=== PATIENT | male | born 1945 | race Caucasian/White ===

== ENCOUNTER → 2022-04-14 | Outpatient (CLI) | payer MEDICARE ==
--- NOTE | 2022-04-14 13:17 | Diagnostic Imaging Report ---
INDICATION: Pain and swelling to the left foot. TIME OF EXAM: 12:09 p.m. TECHNIQUE: Three views of the left foot were obtained. FINDINGS: There is generalized demineralization of the left foot. Metatarsals and phalanges appear intact. There are degenerative changes involving multiple tarsometatarsal joints. Midfoot and hindfoot are otherwise unremarkable. No fractures are seen. There appears to be some soft tissue swelling along the dorsum of the foot. 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 No acute bony abnormality is detected. Dictated by: Dictated on workstation # [id number]
--- NOTE | 2022-04-14 13:28 | Diagnostic Imaging Report ---
Indication: Right foot pain and swelling. Time of Exam: 12:07 PM Three views of the right foot were obtained. Midfoot degenerative change is noted with degenerative changes involving multiple tarsometatarsal joints. The metatarsals and phalanges are intact. Hindfoot is unremarkable. There is significant soft tissue swelling along the dorsum of the right foot. No fractures are seen. IMPRESSION: Dorsal soft tissue swelling and midfoot degenerative change. No acute bony abnormality is detected. Dictated by: Dictated on workstation # [id number]
== END ==
LOC: RAD FS 11:49
PROVIDERS: ATTEND Nurse Practitioner Family
DX: M19.072 Primary osteoarthritis, left ankle and foot (principal); M19.071 Primary osteoarthritis, right ankle and foot
CPT/HCPCS: 73630

== ENCOUNTER → 2022-08-23 | Outpatient (CLI) | payer OTHER, MEDICARE ==
[2022-08-23 08:01] LABS: BASOPHILS # (AUTO) 0.1 10^3/uL (0.0-0.1); BASOPHILS % (AUTO) 1 % (0-10); HEMOGLOBIN 11.2 g/dL (13.3-17.7); MEAN CORPUSCULAR HEMOGLOBIN 22 pg (25-34)
[2022-08-23 08:03] LABS: EOSINOPHILS # (AUTO) 0.1 10^3/uL (0.0-0.3); EOSINOPHILS % (AUTO) 1 % (0-10); HEMATOCRIT 39 % (40-54); LYMPHOCYTES # (AUTO) 1.6 10^3/uL (1.0-4.0); LYMPHOCYTES % (AUTO) 26 % (12-44); MEAN CORPUSCULAR HGB CONC 29 g/dL (32-36); MEAN CORPUSCULAR VOLUME 78 fL (80-99); MONOCYTES # (AUTO) 1.9 10^3/uL (0.0-1.0); MONOCYTES % (AUTO) 32 % (0-12); NEUTROPHILS # (AUTO) 2.2 10^3/uL (1.8-7.8); NEUTROPHILS % (AUTO) 38 % (42-75); WHITE BLOOD COUNT 5.9 10^3/uL (4.3-11.0)
[2022-08-23 08:10] LABS: PLATELET COUNT 3 10^3/uL (130-400)
== END ==
LOC: LABNPT 06:30
PROVIDERS: ATTEND Internal Medicine
DX: Z01.89 Encounter for other specified special examinations (principal)
CPT/HCPCS: 85025

== ENCOUNTER → 2022-08-23 | Outpatient (CLI) | payer MEDICARE ==
[2022-08-23 12:11] LABS: ABSOLUTE RETIC # 67 10e9/uL (24-90); RETICULOCYTE % 1.33 % (0.50-2.40)
[2022-08-23 13:50] LABS: ANISOCYTOSIS MODERATE; BAND NEUTROPHILS 3 %; BASOPHILS % (MANUAL) 0 %; EOSINOPHILS % (MANUAL) 0 %; LYMPHOCYTES % (MANUAL) 22 %; MONOCYTES % (MANUAL) 20 %; NEUTROPHILS % (MANUAL) 55 %; TARGET CELLS SLIGHT
== END ==
LOC: LABNPT 06:30
PROVIDERS: ATTEND Internal Medicine
DX: U07.1 COVID-19 (principal); L03.90 Cellulitis, unspecified
CPT/HCPCS: 85007; 85045